=== PATIENT | male | born 1960 | race Caucasian/White ===

== ENCOUNTER 2021-10-14 17:23 | Emergency (ER) | payer MEDICAID, OTHER ==
[~2021-10-14] VITALS: Ht 172.7 cm; Wt 131.5 kg
[2021-10-14 17:27] VITALS: BP 150/51
[2021-10-14] MEDS ORDERED: AZIT250T9 PO (21:02)
[2021-10-14] MEDS ORDERED: AZITHROMYCIN 250 MG TAB PO ONE (21:15)
[2021-10-14] MEDS ORDERED: CEPH-509 PO (22:07)
== END 2021-10-14 21:15 | disposition home or self-care (01) ==
LOC: ER 17:23
DX: S60.512A Abrasion of left hand, initial encounter (principal); L03.114 Cellulitis of left upper limb; I25.10 Atherosclerotic heart disease of native coronary artery without angina pectoris; W55.03XA Scratched by cat, initial encounter; Y93.89 Activity, other specified; Y92.89 Other specified places as the place of occurrence of the external cause; Y99.8 Other external cause status

== ENCOUNTER 2024-05-08 12:34 | Emergency (ER) | payer MEDICAID ==
[~2024-05-08] VITALS: Ht 172.7 cm; Wt 104.0 kg
[~2024-05-08 12:34] MED LIST: AZIT-43 PO; CEPH-509 PO
--- NOTE | 2024-05-08 14:22 | ED.PDOC ---
History of Present Illness HPI Comments This is a 63-year-old male who comes into the ED with chief complain of dizziness. He has a past medical history relevant for coronary artery disease, cardiomegaly, gout. Patient stated that yesterday he had event of dizziness and lightheadedness, he stated that he did not eat well and did not drank any fluids. He has been feeling weak for the last couple of days, he [facility] an [facility] like he could not go due to this weakness. So he stated that he came in today to get PT/PTT tested as well as his usual Coumadin as he ran out of the ms dication. Patient currently denies any chest pain, shortness of breath, dizziness, lightheadedness, abdominal pain, nausea, vomiting, gait disturbances, urinary symptoms. Chief Complaint: General Weakness Time Seen by MD: 12:40 Primary Care Provider: ALEXANDRA Membreno Notes: Nurses Notes Allergies: Coded Allergies: NO KNOWN ALLERGIES (Unverified , 10/14/21) Home Meds Active Scripts Warfarin Sodium (Warfarin Sodium) 5 Mg Tab, 1 TAB PO DAILY, #90 TAB 1 Refill Prov:NANCY BALES RESIDENT 05/08/24 Cephalexin (KEFLEX 500) 500 Mg Cap, 1 CAP PO Q6HR for 5 Days, #20 CAP Prov:JOVANA CARRIZALES MD 10/14/21 Azithromycin (Azithromycin) 250 Mg Tab, 250 MG PO DAILY for 4 Days, #4 TAB Prov:JOVANA CARRIZALES MD 10/14/21 Information Source: Patient Mode of Arrival: Ambulatory Severity: None Past Medical History PAST MEDICAL HISTORY: CAD Surgical History: Denies all surgeries Family History Family History: Reviewed,noncontributory to illness Social History Smoker: Non-Smoker Alcohol: Denies ETOH Use Drugs: Denies Drug Use Constitutional: denies: chills, diaphoresis, fatigue, fever, malaise, sweats, weakness, others EENTM: denies: blurred vision, double vision, ear bleeding, ear discharge, ear drainage, ear pain, ear ringing, eye pain, eye redness, hearing loss, mouth pain, mouth swelling, nasal discharge, nose bleeding, nose congestion, nose pain, photophobia, tearing, throat pain, throat swelling, voice changes, others Respiratory: denies: cough, hemoptysis, orthopnea, SOB at rest, shortness of breath, SOB with excertion, stridor, wheezing, others Cardiovascular: denies: chest pain, dizzy spells, diaphoresis, Dyspnea on exertion, edema, irregular heart beat, left arm pain, lightheadedness, palpitations, PND, syncope, others Gastrointestinal: denies: abdomen distended, abdominal pain, blood streaked bowels, constipated, diarrhea, dysphagia, difficulty swallowing, hematemesis, melena, nausea, poor appetite, poor fluid intake, rectal bleeding, rectal pain, vomiting, others Genitourinary: denies: burning, dysuria, flank pain, frequency, hematuria, incontinence, penile discharge, penile sore, pain, testicle pain, testicle swelling, urgency, others Neurological: reports: dizziness, fainting; denies: headache, left sided numbness, left sided weakness, numbness, paresthesia, pre-existing deficit, right sided numbness, right sided weakness, seizure, speech problems, tingling, tremors, weakness, others Musculoskeletal: denies: back pain, gout, joint pain, joint swelling, muscle pain, muscle stiffness, neck pain, others Integumetry: denies: bruises, change in color, change in hair/nails, dryness, laceration, lesions, lumps, rash, wounds, others Allergic/Immunocompromised: denies: Difficulty Healing, Frequent Infections, Hives, Itching, others Hematologic/Lymphatic: denies: anemia, blood clots, easy bleeding, easy bruising, swollen glands, others Endocrine: denies: excessive hunger, excessive sweating, excessive thirst, excessive urination, flushing, intolerance to cold, intolerance to heat, unexplained weight gain, unexplained weight loss, others Psychiatric: denies: anxiety, bipolar disorder, depression, hopeless, panic disorder, schizophrenia, sleepless, suicidal, others Physical Exam General Appearance: No Apparent Distress, Normal HEENT: Normal ENT Inspection, Pharynx Normal, TMs Normal Neck: Full Range of Motion, Non-Tender, Normal, Normal Inspection Respiratory: Chest Non-Tender, Lungs Clear, No Accessory Muscle Use, No Respiratory Distress, Normal Breath Sounds Cardiovascular: No Edema, No JVD, No Murmur, No Gallop, Normal Peripheral Pulses, Regular Rate/Rhythm Breast Exam: Deferred Gastrointestinal: No Organomegaly, Non Tender, No Pulsatile Mass, Normal Bowel Sounds, Soft Genitalia: Deferred Pelvic: Deferred Rectal: Deferred Extremities: No calf tenderness, Normal capillary refill, Normal inspection, Normal range of motion, Non-tender, No pedal edema Neurologic: Alert, cable swager II-XII nml as Tested, No Motor Deficits, Normal Affect, Normal Mood, No Sensory Deficits Cerebellar Function: Normal Reflexes: NOT DONE Skin: Dry, Normal Color, Warm Lymphatic: No Adenopathy Was a procedure done? Was a procedure done?: No Differential Dx Considerations may include: Electrolyte abnormality, hypovolemia, CHF, coagulation abnormality X-Ray, Labs, Meds, VS Vital Signs Date Time Temp Pulse Resp B/P (MAP) Pulse Ox O2 Delivery O2 Flow Rate FiO2 05/08/24 14:44 98.0 74 18 125/64 (84) 96 98.0 05/08/24 14:01 98.0 74 18 125/64 (84) 96 Lab Test 05/08/24 14:54 Range/Units White Blood Count 10.9 H 4.4-10.8 10^3/uL Red Blood Count 5.28 4.5-5.90 10^6/uL Hemoglobin 16.4 13.5-17.5 g/dL Hematocrit 48.5 41.0-53.0 % Mean Corpuscular Volume 91.8 80.0-100.0 fL Mean Corpuscular Hemoglobin 31.1 28.0-32.0 pg Mean Corpuscular Hemoglobin Concent 33.9 32.0-36.0 g/dL Red Cell Distribution Width 15.1 H 11.8-14.3 % Platelet Count 201 140-450 10^3/uL Mean Platelet Volume 8.2 6.9-10.8 fL Neutrophils (%) (Auto) 66.4 37.0-80.0 % Lymphocytes (%) (Auto) 22.7 10.0-50.0 % Monocytes (%) (Auto) 7.7 0.0-12.0 % Eosinophils (%) (Auto) 2.4 0.0-7.0 % Basophils (%) (Auto) 0.8 0.0-2.0 % Neutrophils # (Auto) 7.2 1.6-8.6 10 ^3/uL Lymphocytes # (Auto) 2.5 0.4-5.4 10 ^3/uL Monocytes # (Auto) 0.8 0-1.3 10 ^3/uL Eosinophils # (Auto) 0.3 0-0.8 10 ^3/uL Basophils # (Auto) 0.1 0-0.2 10 ^3/uL Nucleated Red Blood Cells 0.0 % Prothrombin Time 11.8 9.3-11.8 sec Prothrombin Time INR 1.12 0.9-1.15 Activated Partial Thromboplast Time 27.1 24.5-34.5 SEC Sodium Level 138 136-145 mmol/L Potassium Level 4.8 3.5-5.1 mmol/L Chloride Level 105 98-107 mmol/L Carbon Dioxide Level 32 H 20-31 mmol/L Anion Gap 1 L 5-15 Blood Urea Nitrogen 12 9-23 mg/dL Creatinine 0.98 0.700-1.30 mg/dL Glomerular Filtration Rate Calc 87 >90 mL/min BUN/Creatinine Ratio 12.2 10.0-20.0 Serum Glucose 84 74-106 mg/dL Calcium Level 10.0 8.7-10.4 mg/dL Troponin I High Sensitivity < 3 L </=54 ng/L B-Type Natriuretic Peptide 192.39 0-100 pg/mL On my initial examination, patient is in no apparent distress, he denies any significant symptoms at this moment. We will ordered a CBC, BMP, UA, PT/PTT, he will continue to reassess. WBC count was 10.9, CO2 was 32, INR was 1.12, patient stated that he is usually at two through three, and that he has history of atrial fibrillation. EKG does show atrial fibrillation Images Reviewed?: Images reviewed and evaluated by me Time of 1ST Reevaluation: 14:16 Reevaluation 1ST: Unchanged Time of 2ND Reevaluation: 16:36 Reevaluation 2ND: Improved Patient Education/Counseling: Diagnosis, Treatment Family Education/Counseling: No Family Present Departure 1 Departure Time of Disposition: 16:41 Impression: Primary Impression: Atrial fibrillation Additional Impression: Dizziness Disposition: 01 HOME / SELF CARE / HOMELESS Condition: Stable e-Prescriptions Warfarin Sodium (Warfarin Sodium) 5 Mg Tab 1 TAB PO DAILY, #90 TAB 1 Refill Prov: NANCY BALES RESIDENT 05/08/24 Critical Care Note Critical Care Time?: No Stability Stability form required: No Heart Score Heart Score: Heart Score Response (Comments) Value History N/A 0 EKG N/A 0 Age N/A 0 Risk Factors N/A 0 Troponin N/A 0 Total 0 NANCY BALES RESIDENT May 08, 2024 14:22
[2024-05-08 14:44] VITALS: TEMP 98
[2024-05-08 15:16] LABS: Basophils # (auto) 0.1 10 ^3/uL (0-0.2); Basophils % (auto) 0.8 % (0.0-2.0); Eosinophils # (auto) 0.3 10 ^3/uL (0-0.8); Eosinophils % (auto) 2.4 % (0.0-7.0); Hematocrit 48.5 % (41.0-53.0); Hemoglobin 16.4 g/dL (13.5-17.5); Lymphocytes # (auto) 2.5 10 ^3/uL (0.4-5.4); Lymphocytes % (auto) 22.7 % (10.0-50.0); Mean Corpuscular Hemoglobin 31.1 pg (28.0-32.0); Mean Corpuscular Hgb Conc. 33.9 g/dL (32.0-36.0); Mean Corpuscular Volume 91.8 fL (80.0-100.0); Monocytes # (auto) 0.8 10 ^3/uL (0-1.3); Monocytes % (auto) 7.7 % (0.0-12.0); Neutrophils # (auto) 7.2 10 ^3/uL (1.6-8.6); Neutrophils % (auto) 66.4 % (37.0-80.0); Platelet Count (auto) 201 10^3/uL (140-450); Red Blood Cells 5.28 10^6/uL (4.5-5.90); Red Cell Distribution Width 15.1 % (11.8-14.3); White Blood Cell 10.9 10^3/uL (4.4-10.8)
[2024-05-08 15:25] LABS: Anion Gap 1 (5-15); Carbon Dioxide 32 mmol/L (20-31); Chloride 105 mmol/L (98-107); Potassium 4.8 mmol/L (3.5-5.1); Sodium 138 mmol/L (136-145)
[2024-05-08 15:30] LABS: Glucose 84 mg/dL (74-106)
[2024-05-08 15:31] LABS: BUN/Creatinine Ratio 12.2 (10.0-20.0); Blood Urea Nitrogen 12 mg/dL (9-23)
[2024-05-08 16:09] LABS: INR 1.12 (0.9-1.15); Partial Thromboplastin Time 27.1 SEC (24.5-34.5); Prothrombin Time 11.8 sec (9.3-11.8)
[2024-05-08] MEDS ORDERED: WARF-66 PO (16:42)
[2024-05-08 16:49] VITALS: BP 143/94; PULSE 82; RESP 17; O2SAT 99
--- NOTE | 2024-05-11 08:07 | ECG ---
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
--- NOTE | 2024-05-11 15:10 | ECG ---
[facility] Test Date: 2024-05-08 Test Time: 16:38:19 Pat Name: ALEX ANGEL Department: ED Room: Gender: M Pattern Hand: MASON : 1960 Requested By: NANCY FRASER Order Number: [id number] Reading MD: Measurements Intervals D Hanis Rate: 98 P: 0 TX: 0 QRS: -36 QRSD: 100 T: 13 QT: 376 QTc: 481 Interpretive Statements Atrial fibrillation Paired ventricular premature complexes Inferior infarct, old Anterior infarct, old Lateral leads are also involved Please click the below link to view image of tracing.
== END 2024-05-08 17:00 | disposition home or self-care (01) ==
LOC: ER 12:34
DX: I48.91 Unspecified atrial fibrillation (principal); R42 Dizziness and giddiness; M10.9 Gout, unspecified; I25.2 Old myocardial infarction; Z79.01 Long term (current) use of anticoagulants
CPT/HCPCS: 36415; 80048; 83880; 84484; 85025; 85610; 85730; 93005